=== PATIENT | male | born 1990 | race Caucasian/White ===

== ENCOUNTER 2016-07-01 20:38 | Emergency (ER) | payer MEDICAID ==
[2016-07-01 20:54] VITALS: BP 144/87
--- NOTE | 2016-07-01 21:17 | EDM.PDOC ---
ED HPI Behavioral Health - General Chief Complaint: Behavioral/Psych Stated Complaint: EVAL Time Seen by Provider: 07/01/16 21:15 Source: Reports: Patient, Family (Parents), Old records, RN notes reviewed Exam Limitations: Reports: No limitations - History of Present Illness INITIAL COMMENTS - FREE TEXT/NARRATIVE: In by his mother and stepfather Chief complaint Anxiety, depression, hallucinations HPI 25-year-old male with long-standing history of behavioral health problems. He's been diagnosed with possible bipolar, disorder, unspecified, at one time diagnosed with borderline personality and with PTSD. 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 He said he does have ongoing anxiety, panic attacks and depression. He has been successfully treated with medication but usually doesn't like the side effects of medication in at least a couple occasions he stopped the medicines and then back to his usual method of handling his anxiety and depression which is using drugs and alcohol. In the past he has used methamphetamine but he hasn't used this for quite some time. He stopped his medications most recently in December of last year about that time he started using drugs and alcohol again and has been staying with his parents since then. He was working at [employer] until the fall is not currently employed. He's been drinking heavy alcohol up to 8 drinks per day, not every day to as well as eat using his friend's Ativan and using marijuana. Hallucinations including voices. Mentioning his name telling him to hurt himself or others but no specifics. Visual hallucinations consist of seeing shadows at the corner of his vision and then when he turns his head there is nothing Lillie. He sometimes gets cleared by the hallucinations. Despite the threatening nature of the hallucinations, he does not want to commit suicide or harm anyone. In the remote past he did try to commit suicide twice once by overdose and once by slitting his wrists. Last use of Ativan and THC was earlier today and his last alcohol was just prior to arrival here with his parents. He is in no legal trouble at the present time and doesn't feel he is in any danger directly although he does feel a bit paranoid, but something or someone or the devil is controlling him. He is tenriism, does believe in God and forgiveness and describes himself as a Mormonism. He does have some friends, one of his friends is giving him the Ativan. His biological father and his biological father sister both have psychiatric disorders, not known with specific diagnosis. Most recently a seen in hospital January 2015 when he stopped his medications, he was transferred to [facility] in [place]. In March 2014 his syncopal episode while using methamphetamine. He has been to [facility] several times but has often gotten very agitated and his hallucinations have been a problem for the staff there as well for him. It is his and his mother's opinion that his primary problem is psychiatric illness and that the drug and alcohol use and secondary to that - Related Data Allergies Allergy/AdvReac Type Severity Reaction Status Date / Time No Known Allergies Allergy Verified 02/02/15 19:04 Home Medications: Home Meds LORazepam 1 mg PO QID PRN #10 tablet 07/01/16 [Rx] Headache Pain Score (Numeric/FACES): 5 Past Medical History - Past Health History Medical/Surgical History: Denies Medical/Surgical History Musculoskeletal History: Reports: Fracture Psychiatric History: Reports: ADHD, Anxiety, Depression Social & Family History - Tobacco Use Smoking Status *Q: Light Tobacco Smoker Years of Tobacco use: 10 Packs/Tins Daily: 0.1 - Caffeine Use Caffeine Use: Reports: Coffee, Energy drinks, Soda - Alcohol Use Days Per Week of Alcohol Use: 7 Number of Drinks Per Day: 8 Total Drinks Per Week: 56 - Recreational Drug Use Recreational Drug Use: Yes Drug Use in Last 12 Months: Yes Recreational Drug Type: Reports: Marijuana/Hashish Other Recreational Drug Type: ativan Recreational Drug Use Frequency: Daily Recreational Drug Last Use: today ED ROS GENERAL - Review of Systems Review Of Systems: See Below Constitutional: Reports: fatigue, decreased appetite. Denies: weight loss HEENT: Reports: No symptoms Respiratory: Reports: No Symptoms Cardiovascular: Reports: No symptoms Endocrine: Reports: no symptoms GI/Abdominal: Reports: Abdominal pain. Denies: Diarrhea, Nausea, Vomiting : Reports: no symptoms Musculoskeletal: Reports: no symptoms Skin: Reports: no symptoms Neurological: Reports: No Symptoms Psychiatric: Reports: Anxiety, Depression, Hallucinations, Mood lability. Denies: Homicidal ideation, Suicidal ideation Hematologic/Lymphatic: Reports: no symptoms Immunologic: Reports: no symptoms ED EXAM, BEHAVIORAL HEALTH - Physical Exam Exam: See Below Exam Limited By: No limitations General Appearance: alert, other (Tearful and anxiousMild tachycardia rate 114 blood pressure mildly elevated, no difficulty speaking or breathing) Eye Exam: bilateral eye: normal inspection Ears: normal external exam, hearing grossly normal Nose: normal inspection Throat/Mouth: Normal inspection Head: atraumatic, normocephalic Neck: normal inspection, supple, full range of motion Respiratory/Chest: no respiratory distress, lungs clear, normal breath sounds, no accessory muscle use, chest non-tender Cardiovascular: normal peripheral pulses, regular rate, rhythm, no murmur GI/Abdominal: normal bowel sounds, soft, non tender, no organomegaly, no distention, no mass (Male) Exam: No hernia Back Exam: normal inspection Extremities: normal inspection, normal range of motion, no pedal edema Neurological: alert, normal cognition, normal gait, no motor/sensory deficits Psychiatric: oriented, depressed mood, flat affect, tearful, auditory hallucinations, visual hallucinations, paranoid thoughts. No: agitated, non- communicative, tenriism delusions, suicidal plan, suicidal thoughts, tangential thoughts, grandiose thoughts, threatening behavior Skin Exam: Warm, Dry, Intact, Normal color, No rash COURSE, BEHAVIORAL HEALTH COMP - Course Vital Signs: Last Vital Signs Temp 37.4 C 07/01/16 20:53 Pulse 114 H 07/01/16 20:53 Resp 14 07/01/16 20:53 BP 144/87 H 07/01/16 20:53 Pulse Ox 97 07/01/16 20:53 Orders, Labs, Meds: Active Orders 24 hr Category Date Time Status EKG Documentation Completion [RC] ASDIRECTED Care 07/01/16 22:08 Active EKG 12 Lead [EK] Routine Ther 07/01/16 22:07 Ordered Laboratory Tests 07/01/16 07/01/16 07/01/16 Range/Units 21:27 21:27 21:27 WBC 14.1 H (4.5-11.0) K/uL RBC 5.24 (4.30-5.90) M/uL Hgb 15.7 H (12.0-15.0) g/dL Hct 46.9 (40.0-54.0) % MCV 90 (80-98) fL MCH 30 (27-31) pg MCHC 34 (32-36) % Plt Count 239 (150-400) K/uL Sodium 142 (140-148) mmol/L Potassium 3.7 (3.6-5.2) mmol/L Chloride 103 (100-108) mmol/L Carbon Dioxide 25 (21-32) mmol/L Anion Gap 14.2 H (5.0-14.0) mmol/L BUN 11 (7-18) mg/dL Creatinine 1.0 (0.8-1.3) mg/dL Est Cr Clr Drug Dosing 111.15 mL/min Estimated GFR (MDRD) > 60 (>60) Glucose 97 (74-106) mg/dL Calcium 9.1 (8.5-10.1) mg/dL Total Bilirubin 0.5 D (0.2-1.0) mg/dL AST 14 L (15-37) U/L ALT 21 (12-78) U/L Alkaline Phosphatase 61 (46-116) U/L Total Protein 7.6 (6.4-8.2) g/dL Albumin 4.3 (3.4-5.0) g/dL Globulin 3.3 (2.3-3.5) g/dL Albumin/Globulin Ratio 1.3 (1.2-2.2) Lipase (73-393) U/L TSH, Ultra Sensitive 1.583 (0.358-3.740) uIU/mL Urine Color Urine Appearance Urine pH (4.5-8.0) Ur Specific [place] (1.008-1.030) Urine Protein (NEGATIVE) mg/dL Urine Glucose (UA) (NEGATIVE) mg/dL Urine Ketones (NEGATIVE) mg/dL Urine Occult Blood (NEGATIVE) Urine Nitrite (NEGAITVE) Urine Bilirubin (NEGATIVE) Urine Urobilinogen (NORMAL) mg/dL Ur Leukocyte Esterase (NEGATIVE) Urine RBC (0-5) Urine WBC (0-5) Ur Epithelial Cells Amorphous Sediment Urine Bacteria Urine Mucus Salicylates 1.9 L (2.0-20.0) mg/dL Urine Opiates Screen (NEGATIVE) Ur Oxycodone Screen (NEGATIVE) Urine Methadone Screen (NEGATIVE) Ur Propoxyphene Screen (NEGATIVE) Acetaminophen 0.0 L (10.0-30.0) ug/mL Ur Barbiturates Screen (NEGATIVE) Ur Tricyclics Screen (NEGATIVE) Ur Phencyclidine Scrn (NEGATIVE) Ur Amphetamine Screen (NEGATIVE) U Methamphetamines Scrn (NEGATIVE) Urine MDMA Screen (NEGATIVE) U Benzodiazepines Scrn (NEGATIVE) U Cocaine Metab Screen (NEGATIVE) U Marijuana (THC) Screen (NEGATIVE) Ethyl Alcohol mg/dL 07/01/16 07/01/16 07/01/16 Range/Units 21:27 21:34 21:34 WBC (4.5-11.0) K/uL RBC (4.30-5.90) M/uL Hgb (12.0-15.0) g/dL Hct (40.0-54.0) % MCV (80-98) fL MCH (27-31) pg MCHC (32-36) % Plt Count (150-400) K/uL Sodium (140-148) mmol/L Potassium (3.6-5.2) mmol/L Chloride (100-108) mmol/L Carbon Dioxide (21-32) mmol/L Anion Gap (5.0-14.0) mmol/L BUN (7-18) mg/dL Creatinine (0.8-1.3) mg/dL Est Cr Clr Drug Dosing mL/min Estimated GFR (MDRD) (>60) Glucose (74-106) mg/dL Calcium (8.5-10.1) mg/dL Total Bilirubin (0.2-1.0) mg/dL AST (15-37) U/L ALT (12-78) U/L Alkaline Phosphatase (46-116) U/L Total Protein (6.4-8.2) g/dL Albumin (3.4-5.0) g/dL Globulin (2.3-3.5) g/dL Albumin/Globulin Ratio (1.2-2.2) Lipase (73-393) U/L TSH, Ultra Sensitive (0.358-3.740) uIU/mL Urine Color Yellow Urine Appearance Clear Urine pH 6.5 (4.5-8.0) Ur Specific [place] 1.010 (1.008-1.030) Urine Protein Negative (NEGATIVE) mg/dL Urine Glucose (UA) Normal (NEGATIVE) mg/dL Urine Ketones Negative (NEGATIVE) mg/dL Urine Occult Blood Negative (NEGATIVE) Urine Nitrite Negative (NEGAITVE) Urine Bilirubin Negative (NEGATIVE) Urine Urobilinogen Normal (NORMAL) mg/dL Ur Leukocyte Esterase Negative (NEGATIVE) Urine RBC Not seen (0-5) Urine WBC Not seen (0-5) Ur Epithelial Cells Few Amorphous Sediment Not seen Urine Bacteria Rare Urine Mucus Rare Salicylates (2.0-20.0) mg/dL Urine Opiates Screen Negative (NEGATIVE) Ur Oxycodone Screen Negative (NEGATIVE) Urine Methadone Screen Negative (NEGATIVE) Ur Propoxyphene Screen Negative (NEGATIVE) Acetaminophen (10.0-30.0) ug/mL Ur Barbiturates Screen Negative (NEGATIVE) Ur Tricyclics Screen Negative (NEGATIVE) Ur Phencyclidine Scrn Negative (NEGATIVE) Ur Amphetamine Screen Negative (NEGATIVE) U Methamphetamines Scrn Negative (NEGATIVE) Urine MDMA Screen Negative (NEGATIVE) U Benzodiazepines Scrn Positive H (NEGATIVE) U Cocaine Metab Screen Negative (NEGATIVE) U Marijuana (THC) Screen Positive H (NEGATIVE) Ethyl Alcohol 47 mg/dL 07/01/16 Range/Units 22:06 WBC (4.5-11.0) K/uL RBC (4.30-5.90) M/uL Hgb (12.0-15.0) g/dL Hct (40.0-54.0) % MCV (80-98) fL MCH (27-31) pg MCHC (32-36) % Plt Count (150-400) K/uL Sodium (140-148) mmol/L Potassium (3.6-5.2) mmol/L Chloride (100-108) mmol/L Carbon Dioxide (21-32) mmol/L Anion Gap (5.0-14.0) mmol/L BUN (7-18) mg/dL Creatinine (0.8-1.3) mg/dL Est Cr Clr Drug Dosing mL/min Estimated GFR (MDRD) (>60) Glucose (74-106) mg/dL Calcium (8.5-10.1) mg/dL Total Bilirubin (0.2-1.0) mg/dL AST (15-37) U/L ALT (12-78) U/L Alkaline Phosphatase (46-116) U/L Total Protein (6.4-8.2) g/dL Albumin (3.4-5.0) g/dL Globulin (2.3-3.5) g/dL Albumin/Globulin Ratio (1.2-2.2) Lipase 78 (73-393) U/L TSH, Ultra Sensitive (0.358-3.740) uIU/mL Urine Color Urine Appearance Urine pH (4.5-8.0) Ur Specific [place] (1.008-1.030) Urine Protein (NEGATIVE) mg/dL Urine Glucose (UA) (NEGATIVE) mg/dL Urine Ketones (NEGATIVE) mg/dL Urine Occult Blood (NEGATIVE) Urine Nitrite (NEGAITVE) Urine Bilirubin (NEGATIVE) Urine Urobilinogen (NORMAL) mg/dL Ur Leukocyte Esterase (NEGATIVE) Urine RBC (0-5) Urine WBC (0-5) Ur Epithelial Cells Amorphous Sediment Urine Bacteria Urine Mucus Salicylates (2.0-20.0) mg/dL Urine Opiates Screen (NEGATIVE) Ur Oxycodone Screen (NEGATIVE) Urine Methadone Screen (NEGATIVE) Ur Propoxyphene Screen (NEGATIVE) Acetaminophen (10.0-30.0) ug/mL Ur Barbiturates Screen (NEGATIVE) Ur Tricyclics Screen (NEGATIVE) Ur Phencyclidine Scrn (NEGATIVE) Ur Amphetamine Screen (NEGATIVE) U Methamphetamines Scrn (NEGATIVE) Urine MDMA Screen (NEGATIVE) U Benzodiazepines Scrn (NEGATIVE) U Cocaine Metab Screen (NEGATIVE) U Marijuana (THC) Screen (NEGATIVE) Ethyl Alcohol mg/dL Medications Discontinued Medications Generic Name Dose Route Start Last Admin Trade Name Freq PRN Reason Stop Dose Admin Haloperidol 2 mg 07/01/16 22:08 07/01/16 22:14 Haldol PO 07/01/16 22:09 2 mg ONETIME ONE Administration Ibuprofen 400 mg 07/01/16 21:26 07/01/16 21:32 Motrin PO 07/01/16 21:27 400 mg ONETIME ONE Administration Medical Clearance: 07/01/16 22:05 25-year-old male with chronic depression and anxiety, possible other diagnoses including autism/ADHD/bipolar disorder with tendency to treat his anxiety and depression with alcohol and drugs. He is again reaching a crisis point and would like to be admitted. I think is very reasonable given that the degree of distress he's having the fact that he has significant mental illness and has disturbing visual and auditory hallucinations. Ibuprofen 400 mg by mouth for headache Haloperidol 2 mg by mouth for restlessness and anxiety Medical screening tests done 07/01/16 22:46 EKG shows sinus rhythm rate 104, otherwise normal EKG Alcohol level 43 mg/dL, urine drug screen positive for benzodiazepines and THC. Salicylate and acetaminophen nontoxic or negative remaining lab tests showed no acute abnormalities Patient requested psychiatric admission which will be arranged because of his hallucinations, depression anxiety and possible other psychiatric diagnoses will decompensation. 07/01/16 22:48 07/01/16 23:29 Patient does not have gout insurance at this time, consequently psychiatric admission cannot be arranged without upfront elizondo payment which is not available Options were discussed with patient and with his mother by phone, he has elected to go home tonight, will prescribe Ativan, and will followup with social service agency director to arrange insurance and outpatient treatment Return to emergency if symptoms are worsening C. prescription below for lorazepam 07/01/16 23:36 Departure - Departure Time of Disposition: 23:30 Disposition: Home, Self-Care 01 Condition: fair Clinical Impression: Depressive disorder, Anxiety, Alcohol abuse, Drug abuse Prescriptions: LORazepam 1 mg PO QID PRN #10 tablet PRN Reason: Depression, anxiety or panic Instructions: Panic Attacks, Chemical Dependency, Dysphoria, Alcohol Use Disorder Referrals: PCP,None [Primary Care Provider] - Forms: ED Department Discharge Additional Instructions: Contact social service agency director to arrange insurance coverage Also to arrange outpatient psychiatric referral. Return to emergency if you become more severely distressed and especially if you become suicidal or become a risk for violence against others or herself. - My Orders Last 24 Hours: My Active Orders 07/01/16 22:07 EKG 12 Lead [EK] Routine 07/01/16 22:08 EKG Documentation Completion [RC] ASDIRECTED - Assessment/Plan Last 24 Hours: My Active Orders 07/01/16 22:07 EKG 12 Lead [EK] Routine 07/01/16 22:08 EKG Documentation Completion [RC] ASDIRECTED
[2016-07-01] MEDS ORDERED: Ibuprofen 400 MG Tab PO ONE (21:26)
[2016-07-01] MEDS ORDERED: Haloperidol 1 MG Tab PO ONE (22:08)
== END 2016-07-01 23:42 | disposition home or self-care (01) ==
LOC: JP.ED 20:38
DX: F32.9 Major depressive disorder, single episode, unspecified (principal); F41.9 Anxiety disorder, unspecified; F10.10 Alcohol abuse, uncomplicated; F12.90 Cannabis use, unspecified, uncomplicated; F17.200 Nicotine dependence, unspecified, uncomplicated
CPT/HCPCS: 36415; 80053; 80305; 81001; 83690; 84443; 85027; 93005; 93010; 99283; 99285; A9270; G0480

== ENCOUNTER 2016-07-03 10:16 | Emergency (ER) | payer MEDICAID ==
[2016-07-03] MEDS ORDERED: LORazepam 1 MG Tab PO ONE (12:44)
--- NOTE | 2016-07-03 13:11 | EDM.PDOC ---
[id number] PANIC ATTAKS/DEPRESSED/EVAL Time Seen by Provider: 07/03/16 11:15 Source: Reports: Patient, Family Exam Limitations: Reports: No limitations - History of Present Illness INITIAL COMMENTS - FREE TEXT/NARRATIVE: 25-year-old male with bipolar, anxiety and depression who was seen and received a full evaluation 2 days ago here in the emergency room and was actually accepted for admission to a psychiatric facility but did not have insurance coverage. Since that time his insurance has been established, he is not improving so mom brought him back to be admitted. He was given 10 Ativan 2 days ago but "left them at her friend's house". He did have some alcohol in his system 2 days ago, currently not drinking. Still having some hallucinations and thoughts of self-harm although he has no plan. Severity: moderate Context, Behavioral Health: Reports: living situation, family dynamics Associated Symptoms: Reports: anxiety, agitation, depression, suicidal thought - Related Data Allergies Allergy/AdvReac Type Severity Reaction Status Date / Time No Known Allergies Allergy Verified 07/03/16 11:05 Home Medications: Home Meds LORazepam 1 mg PO QID PRN #10 tablet 07/01/16 [Rx] Abdominal Pain Score (Numeric/FACES): 6 Headache Pain Score (Numeric/FACES): 5 Past Medical History - Past Health History Medical/Surgical History: Denies Medical/Surgical History Musculoskeletal History: Reports: Fracture Psychiatric History: Reports: ADHD, Anxiety, Bipolar, Depression, Psych Hospitalization(s), PTSD, Suicide attempt, Suicidal ideation Social & Family History - Tobacco Use Smoking Status *Q: Heavy Tobacco Smoker Years of Tobacco use: 9 Packs/Tins Daily: 0.7 - Caffeine Use Caffeine Use: Reports: Coffee, Energy drinks, Soda - Alcohol Use Days Per Week of Alcohol Use: 7 Number of Drinks Per Day: 7 Total Drinks Per Week: 49 - Recreational Drug Use Recreational Drug Use: Yes Drug Use in Last 12 Months: Yes Recreational Drug Type: Reports: Marijuana/Hashish Other Recreational Drug Type: ativan Recreational Drug Use Frequency: Rarely Recreational Drug Last Use: a couple days ago. ED ROS GENERAL - Review of Systems Review Of Systems: See Below Constitutional: Denies: fever, chills, malaise Respiratory: Denies: Shortness of Breath, Cough Cardiovascular: Denies: Chest pain GI/Abdominal: Denies: Abdominal pain, Nausea, Vomiting Skin: Reports: no symptoms ED EXAM, BEHAVIORAL HEALTH - Physical Exam Exam: See Below Exam Limited By: No limitations General Appearance: alert, no apparent distress Eye Exam: bilateral eye: normal inspection Respiratory/Chest: no respiratory distress, lungs clear Cardiovascular: regular rate, rhythm Extremities: normal inspection Neurological: alert Psychiatric: depressed mood, tearful Skin Exam: Warm, Dry COURSE, BEHAVIORAL HEALTH COMP - Course Vital Signs: Last Vital Signs Temp 99.5 F 07/03/16 16:22 Pulse 105 H 07/03/16 16:22 Resp 16 07/03/16 16:22 BP 137/86 07/03/16 16:22 Pulse Ox 100 07/03/16 16:22 Orders, Labs, Meds: Laboratory Tests 07/03/16 07/03/16 Range/Units 11:34 11:34 Urine Opiates Screen Negative (NEGATIVE) Ur Oxycodone Screen Negative (NEGATIVE) Urine Methadone Screen Negative (NEGATIVE) Ur Propoxyphene Screen Negative (NEGATIVE) Ur Barbiturates Screen Negative (NEGATIVE) Ur Tricyclics Screen Negative (NEGATIVE) Ur Phencyclidine Scrn Negative (NEGATIVE) Ur Amphetamine Screen Negative (NEGATIVE) U Methamphetamines Scrn Negative (NEGATIVE) Urine MDMA Screen Negative (NEGATIVE) U Benzodiazepines Scrn Positive H (NEGATIVE) U Cocaine Metab Screen Negative (NEGATIVE) U Marijuana (THC) Screen Positive H (NEGATIVE) Ethyl Alcohol < 3 mg/dL Medications Discontinued Medications Generic Name Dose Route Start Last Admin Trade Name Freq PRN Reason Stop Dose Admin Lorazepam 1 mg 07/03/16 12:44 07/03/16 13:01 Ativan PO 07/03/16 12:45 1 mg ONETIME ONE Administration Re-Assessment/Re-Exam: EtOH was done which was 0. Urine drug screen was rechecked again positive for marijuana and benzodiazepines. Hopefully [facility] still has an opening and will accept patient for admission [facility] was unable to accept the patient but [facility] fortunately was able to except. He'll be sent him by private car. Departure - Departure Time of Disposition: 16:30 Disposition: DC/Tfer to Other 70 Condition: good Clinical Impression: Hallucinations, Depressive disorder, Suicidal ideation Instructions: Suicidal Feelings: How to Help Yourself Referrals: PCP,None [Primary Care Provider] - Forms: ED Department Discharge Care Plan Goals: Patient will be transferred to [facility] by private car. Go directly to [facility] for admission.
[2016-07-03 16:22] VITALS: BP 137/86
== END 2016-07-03 16:31 | disposition other institution (70) ==
LOC: JP.ED 10:16
DX: R44.3 Hallucinations, unspecified (principal); R45.851 Suicidal ideations; F17.210 Nicotine dependence, cigarettes, uncomplicated
CPT/HCPCS: 36415; 80305; 99284; A9270; G0480

== ENCOUNTER 2017-07-21 15:52 | Emergency (ER) | payer MEDICAID ==
--- NOTE | 2017-07-21 16:14 | EDM.PDOCBH ---
<Janet Mas - Last Filed: 07/21/17 18:02> ED HPI GENERAL MEDICAL PROBLEM - General Chief Complaint: Drug or Alcohol Abuse Stated Complaint: EVAL Time Seen by Provider: 07/21/17 16:14 Source of Information: Reports: Patient History Limitations: Reports: No Limitations - History of Present Illness INITIAL COMMENTS - FREE TEXT/NARRATIVE: pt hs been off of his meds since October. He hs been drinking heavily and using meth. He feels quite agitated at this point. Onset: Other (pt has had suicidal thoughts particularly today. He is not feeling safe at home. He is very paranoid. ) Duration: Hour(s):, Other (Pt has not drank today but he drank until he passed out last nite and he woke up about 1 pm. ) Location: Reports: Other (pt is feeling quite shakey. ) Quality: Reports: Sharp Associated Symptoms: Reports: Weakness - Related Data Allergies Allergy/AdvReac Type Severity Reaction Status Date / Time No Known Allergies Allergy Verified 07/03/16 11:05 Home Meds: Home Meds NK [No Known Home Meds] 07/21/17 [History] Past Medical History - Past Health History Medical/Surgical History: Denies Medical/Surgical History Cardiovascular History: Reports: Other (See Below) Other Cardiovascular History: Tachicardia Musculoskeletal History: Reports: Fracture Psychiatric History: Reports: ADHD, Anxiety, Bipolar, Depression, Psych Hospitalization(s), PTSD, Suicide Attempt, Suicidal Ideation Social & Family History - Tobacco Use Smoking Status *Q: Heavy Tobacco Smoker Years of Tobacco use: 9 Packs/Tins Daily: 0.5 - Caffeine Use Caffeine Use: Reports: Coffee, Energy Drinks, Soda - Alcohol Use Days Per Week of Alcohol Use: 7 Number of Drinks Per Day: 7 Total Drinks Per Week: 49 - Recreational Drug Use Recreational Drug Use: Yes Drug Use in Last 12 Months: Yes Recreational Drug Type: Reports: Marijuana/Hashish, Methamphetamine Other Recreational Drug Type: ativan Recreational Drug Use Frequency: Rarely Recreational Drug Last Use: a couple days ago. ED ROS GENERAL - Review of Systems Review Of Systems: See Below Constitutional: Reports: No Symptoms HEENT: Reports: No Symptoms Respiratory: Reports: No Symptoms Endocrine: Reports: No Symptoms GI/Abdominal: Reports: Nausea, Other (pt has been very nauseated all day. ) : Reports: No Symptoms Musculoskeletal: Reports: No Symptoms Skin: Reports: No Symptoms Neurological: Reports: No Symptoms Psychiatric: Reports: Anxiety, Depression, Suicidal Ideation Hematologic/Lymphatic: Reports: No Symptoms ED EXAM, BEHAVIORAL HEALTH - Physical Exam Exam: See Below Text/Narrative:: pt has been drinking heavily for the past several monthes. He was in treatment about 1 year ago. He has not been taking jhis meds. He has had [facility] hospitalizations at least 9 time.3 He did kyra an overdose once. Exam Limited By: No Limitations General Appearance: Alert, Anxious, Other (pupils are equal and reactive. ) Nose: Normal Inspection Throat/Mouth: Normal Inspection Head: Atraumatic Neck: Normal Inspection Respiratory/Chest: No Respiratory Distress Cardiovascular: Regular Rate, Rhythm, Tachycardia GI/Abdominal: Soft, Non-Tender (Male) Exam: Deferred Rectal (Males) Exam: Deferred Back Exam: Normal Inspection Extremities: Normal Inspection Neurological: Alert, Normal Cognition Psychiatric: Alert, Oriented, Depressed Mood, Suicidal Thoughts COURSE, BEHAVIORAL HEALTH COMP - Course Vital Signs: Last Vital Signs Temp 99.9 F 07/21/17 16:05 Pulse 95 07/21/17 16:53 Resp 18 07/21/17 16:53 BP 126/85 07/21/17 16:53 Pulse Ox 96 07/21/17 16:53 Orders, Labs, Meds: Active Orders 24 hr Category Date Time Status DRUG SCREEN, URINE [URCHEM] Stat Lab 07/21/17 16:18 Ordered UA W/MICROSCOPIC [URIN] Urgent Lab 07/21/17 16:18 Ordered Sodium Chloride 0.9% [Normal Saline] 1,000 ml Med 07/21/17 16:45 Active IV ASDIRECTED Medication Orders Sodium Chloride (Normal Saline) 1,000 mls @ 999 mls/hr IV ASDIRECTED RYAN Last Admin: 07/21/17 16:44 Dose: 999 mls/hr Laboratory Tests 07/21/17 07/21/17 07/21/17 Range/Units 16:15 16:15 16:15 WBC 14.1 H (4.5-11.0) K/uL RBC 5.43 (4.30-5.90) M/uL Hgb 16.6 H (12.0-15.0) g/dL Hct 48.7 (40.0-54.0) % MCV 90 (80-98) fL MCH 31 (27-31) pg MCHC 34 (32-36) % Plt Count 328 (150-400) K/uL Neut % (Auto) 74 H (36-66) % Lymph % (Auto) 18 L (24-44) % [place] % (Auto) 8 H (2-6) % Eos % (Auto) 0 L (2-4) % Baso % (Auto) 0 (0-1) % Sodium 139 L (140-148) mmol/L Potassium 4.1 (3.6-5.2) mmol/L Chloride 99 L (100-108) mmol/L Carbon Dioxide 26 (21-32) mmol/L Anion Gap 18.1 H (5.0-14.0) mmol/L BUN 14 (7-18) mg/dL Creatinine 1.1 (0.8-1.3) mg/dL Est Cr Clr Drug Dosing 100.18 mL/min Estimated GFR (MDRD) > 60 (>60) Glucose 135 H (74-106) mg/dL Calcium 9.3 (8.5-10.1) mg/dL Total Bilirubin 0.8 D (0.2-1.0) mg/dL AST 25 D (15-37) U/L ALT 33 (12-78) U/L Alkaline Phosphatase 90 (46-116) U/L Total Protein 8.0 (6.4-8.2) g/dL Albumin 4.4 (3.4-5.0) g/dL Globulin 3.6 H (2.3-3.5) g/dL Albumin/Globulin Ratio 1.2 (1.2-2.2) Urine Color Urine Appearance Urine pH (4.5-8.0) Ur Specific [place] (1.008-1.030) Urine Protein (NEGATIVE) mg/dL Urine Glucose (UA) (NEGATIVE) mg/dL Urine Ketones (NEGATIVE) mg/dL Urine Occult Blood (NEGATIVE) Urine Nitrite (NEGAITVE) Urine Bilirubin (NEGATIVE) Urine Urobilinogen (NORMAL) mg/dL Ur Leukocyte Esterase (NEGATIVE) Urine RBC (0-5) Urine WBC (0-5) Ur Epithelial Cells Amorphous Sediment Urine Bacteria Urine Mucus Urine Opiates Screen (NEGATIVE) Ur Oxycodone Screen (NEGATIVE) Urine Methadone Screen (NEGATIVE) Ur Propoxyphene Screen (NEGATIVE) Acetaminophen (10.0-30.0) ug/mL Ur Barbiturates Screen (NEGATIVE) Ur Tricyclics Screen (NEGATIVE) Ur Phencyclidine Scrn (NEGATIVE) Ur Amphetamine Screen (NEGATIVE) U Methamphetamines Scrn (NEGATIVE) Urine MDMA Screen (NEGATIVE) U Benzodiazepines Scrn (NEGATIVE) U Cocaine Metab Screen (NEGATIVE) U Marijuana (THC) Screen (NEGATIVE) Ethyl Alcohol < 3 mg/dL 07/21/17 07/21/17 07/21/17 Range/Units 16:17 16:18 16:18 WBC (4.5-11.0) K/uL RBC (4.30-5.90) M/uL Hgb (12.0-15.0) g/dL Hct (40.0-54.0) % MCV (80-98) fL MCH (27-31) pg MCHC (32-36) % Plt Count (150-400) K/uL Neut % (Auto) (36-66) % Lymph % (Auto) (24-44) % [place] % (Auto) (2-6) % Eos % (Auto) (2-4) % Baso % (Auto) (0-1) % Sodium (140-148) mmol/L Potassium (3.6-5.2) mmol/L Chloride (100-108) mmol/L Carbon Dioxide (21-32) mmol/L Anion Gap (5.0-14.0) mmol/L BUN (7-18) mg/dL Creatinine (0.8-1.3) mg/dL Est Cr Clr Drug Dosing mL/min Estimated GFR (MDRD) (>60) Glucose (74-106) mg/dL Calcium (8.5-10.1) mg/dL Total Bilirubin (0.2-1.0) mg/dL AST (15-37) U/L ALT (12-78) U/L Alkaline Phosphatase (46-116) U/L Total Protein (6.4-8.2) g/dL Albumin (3.4-5.0) g/dL Globulin (2.3-3.5) g/dL Albumin/Globulin Ratio (1.2-2.2) Urine Color Yellow Urine Appearance Slightly cloudy Urine pH 7.0 (4.5-8.0) Ur Specific [place] 1.010 (1.008-1.030) Urine Protein Trace (NEGATIVE) mg/dL Urine Glucose (UA) Normal (NEGATIVE) mg/dL Urine Ketones 150 H (NEGATIVE) mg/dL Urine Occult Blood Negative (NEGATIVE) Urine Nitrite Negative (NEGAITVE) Urine Bilirubin Small (NEGATIVE) Urine Urobilinogen 1 (NORMAL) mg/dL Ur Leukocyte Esterase Negative (NEGATIVE) Urine RBC 0-5 (0-5) Urine WBC 0-5 (0-5) Ur Epithelial Cells Moderate Amorphous Sediment Not seen Urine Bacteria Not seen Urine Mucus Many Urine Opiates Screen Negative (NEGATIVE) Ur Oxycodone Screen Negative (NEGATIVE) Urine Methadone Screen Negative (NEGATIVE) Ur Propoxyphene Screen Negative (NEGATIVE) Acetaminophen 0.0 L (10.0-30.0) ug/mL Ur Barbiturates Screen Negative (NEGATIVE) Ur Tricyclics Screen Negative (NEGATIVE) Ur Phencyclidine Scrn Negative (NEGATIVE) Ur Amphetamine Screen Negative (NEGATIVE) U Methamphetamines Scrn Negative (NEGATIVE) Urine MDMA Screen Negative (NEGATIVE) U Benzodiazepines Scrn Negative (NEGATIVE) U Cocaine Metab Screen Negative (NEGATIVE) U Marijuana (THC) Screen Positive H (NEGATIVE) Ethyl Alcohol mg/dL Medications Generic Name Dose Route Start Last Admin Trade Name Freq PRN Reason Stop Dose Admin Sodium Chloride 1,000 mls @ 999 mls/hr 07/21/17 16:45 07/21/17 16:44 Normal Saline IV 999 mls/hr ASDIRECTED RYAN Administration Discontinued Medications Generic Name Dose Route Start Last Admin Trade Name Freq PRN Reason Stop Dose Admin Lorazepam 1 mg 07/21/17 16:16 07/21/17 16:23 Ativan PO 07/21/17 16:17 1 mg ONETIME ONE Administration Departure - Departure Disposition: DC/Tfer to Psych Hosp/Unit [facility] Clinical Impression: Suicidal ideation - Discharge Information Referrals: Mike Regalado MD [Primary Care Provider] - Forms: ED Department Discharge <OfficerNeptali - Last Filed: 07/21/17 19:28> COURSE, BEHAVIORAL HEALTH COMP - Course Re-Assessment/Re-Exam: Took over care from Dr. Mas at 1800, awaiting consultation with William Arteagadomingo for psychiatric hospitalization Departure - Departure Time of Disposition: 19:28 Condition: Fair - Assessment/Plan Plan: Assessment Acuity = acute Site and laterality = suicidal ideation Etiology = unclear etiology Manifestations = depression Location of injury = Home Lab values = WBC elevated at 14.1 consistent leukocytosis, remainder CBC and CMP unremarkable urine drug screen positive for cannabis and alcohol was negative Plan Acceptance by William Arteaga'domingo Gu he will be transported via [facility] psychiatric transport This note was dictated using [employer] voice recognition software please call with any questions on syntax or jefry.
[2017-07-21] MEDS ORDERED: LORazepam 1 MG Tab PO ONE (16:16)
[2017-07-21] MEDS ORDERED: Sodium Chloride 0.9% 1,000 ML IV SCH (16:45)
[2017-07-21 16:54] VITALS: BP 126/85
== END 2017-07-21 21:38 ==
LOC: JP.ED 15:52
DX: R45.851 Suicidal ideations (principal); F17.210 Nicotine dependence, cigarettes, uncomplicated
CPT/HCPCS: 36415; 80053; 80305; 81001; 85025; 96360; 99285; A9270; G0480; J7040

== ENCOUNTER 2020-11-23 05:41 | Emergency (ER) | payer MEDICAID ==
--- NOTE | 2020-11-23 06:52 | EDM.PDOCBH ---
<Johan Arreola - Last Filed: 11/23/20 06:38> ED HPI GENERAL MEDICAL PROBLEM - General Chief Complaint: Behavioral/Psych Stated Complaint: MENTAL HEALTH Time Seen by Provider: 11/23/20 06:37 Source of Information: Reports: Patient History Limitations: Reports: No Limitations - History of Present Illness INITIAL COMMENTS - FREE TEXT/NARRATIVE: Redd is a 30-year-old male presenting to the ED for evaluation of mental health. The patient has a history significant for anxiety and depression and has been off of all of his medications for the last 8 months because the patient lost his insurance and could not afford his medications. Patient has been self- medicating over the last month with alcohol. He states that he drinks Tiffanie Federica or vodka. He reports that he has been hearing voices but he thinks that it is a alternate personality that is trying to get through. He does report that he thinks about harming himself and has a number of different plans but no access to most of the plans except for walking into traffic. The patient admits that he probably would not act on them even though he is having the thoughts. The patient's mental health issues started years ago when he was abusing methamphetamine. He does report that he has been sober from methamphetamine for 3 years. He does admit to using marijuana. He tells us that he took 3 shots of vodka before coming in to "calm his nerves.: He has been hospitalized many times with the most recent being in [facility]. - Related Data Allergies Allergy/AdvReac Type Severity Reaction Status Date / Time haloperidol [From Haldol] Allergy Joint Pain Verified 11/23/20 05:54 Home Meds: Home Meds NK [No Known Home Meds] 07/21/17 [History] Past Medical History - Past Health History Medical/Surgical History: Denies Medical/Surgical History Cardiovascular History: Reports: Other (See Below) Other Cardiovascular History: tachy Musculoskeletal History: Reports: Fracture Psychiatric History: Reports: ADHD, Anxiety, Bipolar, Depression, Psych Hospitalization(s), PTSD, Suicide Attempt, Suicidal Ideation Social & Family History - Caffeine Use Caffeine Use: Reports: Coffee, Energy Drinks, Soda - Recreational Drug Use Recreational Drug Use: Yes Recreational Drug Type: Reports: Marijuana/Hashish ED ROS GENERAL - Review of Systems Review Of Systems: See Below Constitutional: Reports: No Symptoms HEENT: Reports: No Symptoms Respiratory: Reports: No Symptoms Cardiovascular: Reports: No Symptoms Endocrine: Reports: No Symptoms GI/Abdominal: Reports: No Symptoms : Reports: No Symptoms Musculoskeletal: Reports: No Symptoms Skin: Reports: No Symptoms Neurological: Reports: No Symptoms Psychiatric: Reports: Anxiety, Depression, Hallucinations (Patient is hearing voices that he states are an alternate personality that strain to come through.), Suicidal Ideation, Other (Patient is not been taking his prescribed medications for the last 8 months due to inability to afford them, instead he has been self-medicating with alcohol including Tiffanie Federica and vodka. Patient has also been using marijuana.) Hematologic/Lymphatic: Reports: No Symptoms Immunologic: Reports: No Symptoms ED EXAM, BEHAVIORAL HEALTH - Physical Exam Exam: See Below Exam Limited By: No Limitations General Appearance: Alert, No Apparent Distress Eye Exam: Bilateral Eye: EOMI, PERRL Throat/Mouth: Normal Inspection, Normal Oropharynx, Normal Voice, No Airway Compromise Head: Atraumatic, Normocephalic Neck: Normal Inspection, Supple Respiratory/Chest: No Respiratory Distress, Lungs Clear, Normal Breath Sounds Cardiovascular: Normal Peripheral Pulses, Regular Rate, Rhythm, No Murmur GI/Abdominal: Normal Bowel Sounds, Soft, Non-Tender Back Exam: Normal Inspection Extremities: Normal Inspection Neurological: Alert, CN II-XII Intact, Normal Cognition, Normal Gait, No Motor/Sensory Deficits, Oriented x 3 Psychiatric: Alert, Depressed Mood, Poor Eye Contact, Suicidal Thoughts (Patient states that he has several plans but no means to carry them out with the exception of walking into traffic. He has no access to a gun. He states he thinks about frequently.), Auditory Hallucinations Skin Exam: Warm, Dry, Intact, Normal color COURSE, BEHAVIORAL HEALTH COMP - Course Re-Assessment/Re-Exam: Labs were obtained showing a normal CBC, comprehensive metabolic panel, and urinalysis. The patient's ethanol level is 101. The urine drug screen is positive for marijuana. His urine was quite dilute. [facility] Crisis Team has been called to come to assess the patient. They had requested to do a phone interview, however, I think they need to do a [id number] as I think they will be able to gather more data in person. Medical Clearance: 11/23/20 07:12 Redd is medically cleared for inpatient psychiatric admission. Departure - Departure Disposition: DC/Tfer to Other 70 Clinical Impression: Suicidal ideation, Depressive disorder, Alcohol abuse - Discharge Information Instructions: Suicidal Feelings: How to Help Yourself Referrals: Teresa Baker PA-C [Primary Care Provider] - Forms: ED Department Discharge Care Plan Goals: Patient is to be transferred to [facility] for inpatient evaluation and treatment for suicidal ideation and chronic depression. Sepsis Event Note (ED) - Evaluation Sepsis Screening Result: No Definite Risk <Rogelio Mendoza - Last Filed: 11/23/20 14:25> COURSE, BEHAVIORAL HEALTH COMP - Course Vital Signs: Last Vital Signs Temp 97.8 F 11/23/20 05:55 Pulse 78 11/23/20 07:48 Resp 18 11/23/20 07:48 BP 112/75 11/23/20 07:48 Pulse Ox 98 11/23/20 07:48 Orders, Labs, Meds: Laboratory Tests 11/23/20 11/23/20 11/23/20 Range/Units 06:00 06:00 06:00 WBC 7.8 (4.5-11.0) K/uL RBC 4.79 (4.30-5.90) M/uL Hgb 14.4 D (12.0-15.0) g/dL Hct 41.9 (40.0-54.0) % MCV 88 (80-98) fL MCH 30 (27-31) pg MCHC 34 (32-36) % Plt Count 223 (150-400) K/uL Neut % (Auto) 45.3 (36-66) % Lymph % (Auto) 46.2 H (24-44) % Grand % (Auto) 7.2 H (2-6) % Eos % (Auto) 0.8 L (2-4) % Baso % (Auto) 0.5 (0-1) % Sodium (140-148) mmol/L Potassium (3.6-5.2) mmol/L Chloride (100-108) mmol/L Carbon Dioxide (21-32) mmol/L Anion Gap (5.0-14.0) mmol/L BUN (7-18) mg/dL Creatinine (0.8-1.3) mg/dL Est Cr Clr Drug Dosing mL/min Estimated GFR (MDRD) (>60) Glucose (74-106) mg/dL Calcium (8.5-10.1) mg/dL Total Bilirubin (0.2-1.0) mg/dL AST (15-37) U/L ALT (12-78) U/L Alkaline Phosphatase (46-116) U/L Total Protein (6.4-8.2) g/dL Albumin (3.4-5.0) g/dL Globulin (2.3-3.5) g/dL Albumin/Globulin Ratio (1.2-2.2) Lipase (73-393) U/L Urine Color Yellow (YELLOW) Urine Appearance Clear (CLEAR) Urine pH 7.0 (5.0-8.0) Ur Specific [place] 1.010 (1.008-1.030) Urine Protein Negative (NEGATIVE) mg/dL Urine Glucose (UA) Negative (NEGATIVE) mg/dL Urine Ketones Negative (NEGATIVE) mg/dL Urine Occult Blood Negative (NEGATIVE) Urine Nitrite Negative (NEGATIVE) Urine Bilirubin Negative (NEGATIVE) Urine Urobilinogen 0.2 (0.2-1.0) EU/dL Ur Leukocyte Esterase Negative (NEGATIVE) Urine RBC Not seen (0-5) Urine WBC Not seen (0-5) Ur Epithelial Cells Not seen Amorphous Sediment Not seen Urine Bacteria Not seen Urine Mucus Not seen Urine Opiates Screen Negative (NEGATIVE) Ur Oxycodone Screen Negative (NEGATIVE) Urine Methadone Screen Negative (NEGATIVE) Ur Propoxyphene Screen Negative (NEGATIVE) Ur Barbiturates Screen Negative (NEGATIVE) Ur Tricyclics Screen Negative (NEGATIVE) Ur Phencyclidine Scrn Negative (NEGATIVE) Ur Amphetamine Screen Negative (NEGATIVE) U Methamphetamines Scrn Negative (NEGATIVE) Urine MDMA Screen Negative (NEGATIVE) U Benzodiazepines Scrn Negative (NEGATIVE) U Cocaine Metab Screen Negative (NEGATIVE) U Marijuana (THC) Screen Presumptive positive H (NEGATIVE) Ethyl Alcohol mg/dL 11/23/20 11/23/20 Range/Units 06:00 06:00 WBC (4.5-11.0) K/uL RBC (4.30-5.90) M/uL Hgb (12.0-15.0) g/dL Hct (40.0-54.0) % MCV (80-98) fL MCH (27-31) pg MCHC (32-36) % Plt Count (150-400) K/uL Neut % (Auto) (36-66) % Lymph % (Auto) (24-44) % Grand % (Auto) (2-6) % Eos % (Auto) (2-4) % Baso % (Auto) (0-1) % Sodium 143 (140-148) mmol/L Potassium 3.2 L (3.6-5.2) mmol/L Chloride 105 (100-108) mmol/L Carbon Dioxide 24 (21-32) mmol/L Anion Gap 17.2 H (5.0-14.0) mmol/L BUN 11 (7-18) mg/dL Creatinine 0.9 (0.8-1.3) mg/dL Est Cr Clr Drug Dosing 118.22 mL/min Estimated GFR (MDRD) > 60 (>60) Glucose 135 H (74-106) mg/dL Calcium 8.5 (8.5-10.1) mg/dL Total Bilirubin 0.2 D (0.2-1.0) mg/dL AST 12 L (15-37) U/L ALT 31 (12-78) U/L Alkaline Phosphatase 52 (46-116) U/L Total Protein 6.4 (6.4-8.2) g/dL Albumin 3.6 (3.4-5.0) g/dL Globulin 2.8 (2.3-3.5) g/dL Albumin/Globulin Ratio 1.3 (1.2-2.2) Lipase 127 (73-393) U/L Urine Color (YELLOW) Urine Appearance (CLEAR) Urine pH (5.0-8.0) Ur Specific [place] (1.008-1.030) Urine Protein (NEGATIVE) mg/dL Urine Glucose (UA) (NEGATIVE) mg/dL Urine Ketones (NEGATIVE) mg/dL Urine Occult Blood (NEGATIVE) Urine Nitrite (NEGATIVE) Urine Bilirubin (NEGATIVE) Urine Urobilinogen (0.2-1.0) EU/dL Ur Leukocyte Esterase (NEGATIVE) Urine RBC (0-5) Urine WBC (0-5) Ur Epithelial Cells Amorphous Sediment Urine Bacteria Urine Mucus Urine Opiates Screen (NEGATIVE) Ur Oxycodone Screen (NEGATIVE) Urine Methadone Screen (NEGATIVE) Ur Propoxyphene Screen (NEGATIVE) Ur Barbiturates Screen (NEGATIVE) Ur Tricyclics Screen (NEGATIVE) Ur Phencyclidine Scrn (NEGATIVE) Ur Amphetamine Screen (NEGATIVE) U Methamphetamines Scrn (NEGATIVE) Urine MDMA Screen (NEGATIVE) U Benzodiazepines Scrn (NEGATIVE) U Cocaine Metab Screen (NEGATIVE) U Marijuana (THC) Screen (NEGATIVE) Ethyl Alcohol 101 mg/dL Medical Clearance: 11/23/20 07:37 Care turned over from Dr. Clifton pending formal psychiatric evaluation. This will be delayed at least by 4 to 6 hours however, in this patient is likely did need formal placement and is willing to be hospitalized so we will start the process to get him accepted as an inpatient. If acceptance is obtained, we may be able to get the crisis eval in a more timely manner to set up outpatient treatment after hospitalization with a phone interview instead of [id number] interview. 11/23/20 09:34 [facility] agreed to accept the patient for inpatient admission, evaluation and treatment. Crisis intervention interview was obtained prior to discharge. Transportation is arranged. Departure - Departure Time of Disposition: 13:45 Sepsis Event Note (ED) - Focused Exam Vital Signs: Vital Signs Temp Pulse Resp BP Pulse Ox 11/23/20 07:48 78 18 112/75 98 11/23/20 05:55 97.8 F 118 H 18 169/104 H 95
[2020-11-23 07:48] VITALS: BP 112/75; PULSE 78
== END 2020-11-23 13:46 | disposition other institution (70) ==
LOC: JP.ED 05:41
DX: F32.9 Major depressive disorder, single episode, unspecified (principal); F10.10 Alcohol abuse, uncomplicated; Z88.5 Allergy status to narcotic agent; Y90.5 Blood alcohol level of 100-119 mg/100 ml
CPT/HCPCS: 36415; 80053; 80305-QW; 80307; 81001; 83690; 85025; 99285

== ENCOUNTER 2024-10-19 09:05 | Day surgery (SDC) | payer MEDICAID ==
[~2024-10-19 09:05] MED LIST: Dexamethasone 4 MG/ML SDV ONE; Glycopyrrolate 0.2 MG/ML 5 ML MDV ONE; Ondansetron 4 MG/2 ML SDV ONE; Propofol 200 MG/20 ML SDV ONE; Succinylcholine 200 MG/10 ML MDV ONE; fentaNYL 250 MCG/5 ML SDV ONE
[2024-10-19 09:35] LABS: PLATELET COUNT,PLT 243.0 K/uL (130-375); RED BLOOD CELL COUNT 5.14 M/uL (4.14-5.76); WHITE BLOOD CELL COUNT,WBC 10.2 K/uL (3.2-11.0)
[2024-10-19] MEDS: Lactated Ringers 1,000 ML IV SCH (09:35)
[2024-10-19] MEDS: Indocyanine Green 25 MG SDV IV ONE (09:45)
[2024-10-19] MEDS: metroNIDAZOLE/Normal Saline 500 MG in Premix Bag 1 BAG IV ONE (09:50)
[2024-10-19 09:55] LABS: A/G RATIO 1.2 (1.2-2.2); ALANINE AMINOTRANSFERASE,ALT 18 U/L (12-78); ASPARTATE AMNIOTRANSFERASE,AST 14 U/L (15-37); BILIRUBIN TOTAL 0.6 mg/dL (0.2-1.0); BLOOD UREA NITROGEN,BUN 18 mg/dL (7-18); CARBON DIOXIDE,CO2 27 mmol/L (21-32); CHLORIDE,CL 104 mmol/L (100-108); CREATININE 0.8 mg/dL (0.8-1.3); ESTIMATED GFR 121 mL/min (>60); GLUCOSE RANDOM 95 mg/dL (74-106); POTASSIUM,K 4.1 mmol/L (3.6-5.2); PROTEIN TOTAL,TP 7.5 g/dL (6.4-8.2); SODIUM,NA 141 mmol/L (140-148)
[2024-10-19] MEDS ORDERED: fentaNYL 50 MCG/ML SDV ONE (10:17)
[2024-10-19] MEDS ORDERED: Ketorolac 30 MG/ML SDV ONE (10:47)
[2024-10-19] MEDS: Lidocaine 1% with EPINEPHrine 1:100,000 50 ML MDV ONE (11:22)
[2024-10-19] MEDS: Acetaminophen/HYDROcodone 325-5 MG Tab PO ONE (13:12)
[2024-10-19 14:21] VITALS: BP 114/67; PULSE 76
== END 2024-10-19 14:30 | disposition home or self-care (01) ==
LOC: JP.SDS 09:05
PROVIDERS: ATTEND Surgery
DX: K80.10 Calculus of gallbladder with chronic cholecystitis without obstruction (principal); F31.9 Bipolar disorder, unspecified; Z87.891 Personal history of nicotine dependence; Z88.8 Allergy status to other drugs, medicaments and biological substances; Z79.899 Other long term (current) drug therapy
CPT/HCPCS: 00790; 36415; 47562; 64488; 80053; 85027; A9270; J0171; J0330; J0665; J0690; J1100; J1596; J1836; J1885; J2405; J2704; J2710; J2795; J3010; J7120; J3490